=== PATIENT | female | born 2000 | race Caucasian/White ===

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

== ENCOUNTER 2023-04-29 07:38 | Emergency (ER) | payer OTHER ==
--- OUTSIDE RECORDS SUMMARY | 2023-04-29 07:43 | XMS REPORT | Continuity of Care Document ---
:2000 Author Organization [facility] t Address [address] [place] [id number] Care Team Providers Name Role Phone [email or web address] Attending Clinician Unavailable Antonietta Reardon Attending Clinician [email or web address] Admitting Clinician Unavailable Payers Payer Name Policy Type Policy Number Effective Date Expiration Date S [place] [id number] 2022 00:00:00 [place] ([place] Problems This patient has no known problems. Allergies, Adverse Reactions, Alerts This patient has no known allergies or adverse reactions. Social History Smoking Status Start Date Stop Date Source Social [facility] Medications Ordered Filled Start Stop Current Ordering Indication Dosage Frequency Signature Comments Components Source Medication Medication Date Date Medication? Clinician (SIG) Name Name acetaminoph Yes 1 tab =, Me moria en-codeine 7-30 PO, Q4H, l #3 13:19: PRN Pain, [place] 00 # 30 tab, 0 Refill(s) Sulfamethox Yes 1 tab, PO, Memoria azole 800 7-30 Q12H, # 10 l MG / 13:19: tab, 0 [place] Trimethopri 00 Refill(s) m 160 MG Oral Tablet [Bactrim] Vital Signs Vital Name Observation Time Observation Value Comments Source BMI Calculated 2019-04-13 13:13:00 Troy al [facility] Temperature Oral (F) 2019-04-13 13:13:00 97.6 F [facility] Respitory Rate 2019-04-13 13:13:00 Memori al [place] Systolic (mm Hg) 2019-04-13 13:13:00 Shankar rial [place] Diastolic (mm Hg) 2019-04-13 13:13:00 Mem orial [place] Heart Rate 2019-04-13 13:13:00 [facility] Weight 2019-04-13 13:13:00 [facility] [place] Height 2019-04-13 13:13:00 162.56 cm [facility] [place] Procedures This patient has no known procedures. Encounters Start End Encounter Admission Attending Care Care Encounter Source Date/Time Date/Time Type Type Clinicians Facility Department ID 2023-03-08 2023-03-08 Outpatient [email or web address] PRIV PRIV [id number] [facility] 00:00:00 00:00:00 sunny [id number] [facility] 2019-04-16 2019-04-17 Between nullFlavo [facility] [id number] Memoria 18:54:38 18:54:38 Visit r Primary 01 l Care [facility] [facility] 2019-04-16 2019-04-17 Outpatient [facility] [id number] 13:54:38 13:54:38 2019-04-13 2019-04-14 [id number] Memoria 13:00:00 04:59:59 r Primary 00 l Care [place] [facility] 2019-04-13 2019-04-13 Outpatient Alexys, [facility] [id number] 08:00:00 23:59:59 Antonietta 00 2019-04-13 2019[id number] Memoria 08:00:00 08:00:00 00 l [place] Results This patient has no known results.
[2023-04-29 08:42] LABS: SARS-CoV-2 Antigen Rapid Res Negative (Negative)
--- NOTE | 2023-04-29 09:13 | ER ---
Nurse's Notes [facility] Name: Mely Haq Age: 23 yrs Sex: Female : 2000 Arrival Date: 04/29/2023 Time: 07:38 Bed 6 Private MD: Diagnosis: Acute upper respiratory infection, unspecified;Acute serous otitis media, left ear Presentation: 04/29 07:56 Chief complaint: Patient states: she woke up this morning with throat pain. she ap3 attempted to go to work this morning, but was unable to stay due to feeling unwell. Coronavirus screen: chills, fever, sore throat. Ebola Screen: No symptoms or risks identified at this time. Initial Sepsis Screen: Does the patient meet any 2 criteria? No. Patient's initial sepsis screen is negative. Does the patient have a suspected source of infection? No. Patient's initial sepsis screen is negative. Risk Assessment: Do you want to hurt yourself or someone else? Patient reports no desire to harm self or others. Onset of symptoms was April 29, 2023. 07:56 Method Of Arrival: Ambulatory ap3 07:56 Acuity: PATY 4 ap3 Triage Assessment: 08:00 General: Appears ill, Behavior is crying. General: Reports chills for fever for. Pain: ap3 Complains of pain in throat. EENT: Reports pain when swallowing. Neuro: Reports. Cardiovascular: Patient's skin is warm and dry. Respiratory: Airway is patent Respiratory effort is even, unlabored, Respiratory pattern is regular, symmetrical. 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 - Social history:: Smoking status: Patient denies any tobacco usage or history of. Patient uses alcohol, every other day, and heavy on the weekends. Screenin:03 [facility] ED Fall Risk Assessment (Adult) Score/Fall Risk Level 0 - 2 = Low Risk. Abuse me1 screen: Denies threats or abuse. Nutritional screening: No deficits noted. Tuberculosis screening: No symptoms or risk factors identified. Assessment: 08:03 General: Appears uncomfortable, well groomed, well developed, well nourished, Behavior me1 is cooperative, appropriate for age, crying, Reports chills for feeling ill for sore throat and body aches that started this morning. Pain: Complains of pain in generalized Pain does not radiate. Pain currently is 7 out of 10 on a pain scale. Quality of pain is described as aching, Pain began 2 hours ago. Is continuous. Neuro: Level of Consciousness is awake, alert, obeys commands, Oriented to person, place, time, situation, Appropriate for age. Cardiovascular: Capillary refill < 3 seconds Patient's skin is warm and dry. Respiratory: Airway is patent Respiratory effort is even, unlabored, Respiratory pattern is regular, symmetrical. GI: Patient currently denies diarrhea, nausea, vomiting. :. Vital Signs: 07:56 Pulse 86; Resp 18; Temp 99.8; Pulse Ox 100% ; ap3 09:18 BP 119 / 84; Pulse 85; Resp 16; Temp 98.3(O); Pulse Ox 100% on R/A; me1 ED Course: 07:41 Patient arrived in ED. ts1 07:49 Let[facility] Baldwin F[facility]-C [facility]. snw 07:49 Chas Dunham MD is Attending Physician. snw 07:51 Karie Salgado, ISABELLE is Primary Nurse. ko1 07:58 Triage completed. ap3 08:01 SARS RAPID Sent. ko1 08:01 Flu Sent. ko1 08:01 Strep Sent. ko1 08:01 Patient maintains SpO2 saturation greater than 95% on room air. ap3 08:01 Arm band placed on right wrist. ap3 08:03 No provider procedures requiring assistance completed. me1 08:03 Allergy band placed. Bed in low position. Call light in reach. Side rails up X 1. me1 Provided Education on: POC. Verbalized understanding.. Client placed on continuous cardiac and pulse oximetry monitoring. NIBP monitoring applied. 09:19 PREGU Sent. me1 09:19 Urine W/Microscopic (UAM) Sent. me1 09:19 Throat Culture Sent. me1 Administered Medications: 09:24 Drug: AZITHromycin PO 500 mg Route: PO; me1 09:30 Follow up: Response: No adverse reaction me1 09:24 Drug: Famotidine PO 20 mg Route: PO; me1 09:30 Follow up: Response: No adverse reaction me1 09:24 Drug: ZyrTEC - Cetirizine PO 10 mg Route: PO; me1 09:30 Follow up: Response: No adverse reaction me1 Medication: 08:03 VIS not applicable for this client. me1 Outcome: 09:12 Discharge ordered by . snw 09:34 Discharged to home ambulatory, with friend. me1 09:34 Condition: stable 09:34 Discharge instructions given to patient, family, Instructed on discharge instructions, follow up and referral plans. medication usage, Demonstrated understanding of instructions, follow-up care, medications, Prescriptions given X 3. 09:35 Patient left the ED. me1 Signatures: Lety Baldwin, PAN CLEANER-C PAN CLEANER-Csnw Jessica Rodriguez RN RN ap3 Karie Salgado RN RN ko1 Kathleen Gaitan, PAS PAS ts1 Becki Harris RN RN me1 Corrections: (The following items were deleted from the chart) 08:00 07:58 Home Meds: Tramadol Oral; ap3 ap3
--- NOTE | 2023-04-29 09:13 | EDPHYS ---
Physician Documentation [facility] Name: Mely Haq Age: 23 yrs Sex: Female : 2000 Arrival Date: 04/29/2023 Time: 07:38 Bed 6 Private MD: ED Physician Chas Dunham HPI: 04/29 07:59 This 23 yrs old Female presents to ER via Ambulatory with complaints of General snw Weakness, Chest Pain, Fever, Throat pain. 07:59 The patient or guardian reports flu symptoms. Onset: The symptoms/episode snw began/occurred suddenly, this morning. Severity of symptoms: At their worst the symptoms were mild moderate. It is unknown whether or not the patient has recently seen a physician. 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 - Social history:: Smoking status: Patient denies any tobacco usage or history of. Patient uses alcohol, every other day, and heavy on the weekends. ROS: 07:58 Eyes: Negative for injury, pain, redness, and discharge, ENT: Negative for injury, snw pain, and discharge, Neck: Negative for injury, pain, and swelling. 07:58 Respiratory: Negative for shortness of breath, cough, wheezing, and pleuritic chest pain, Abdomen/GI: Negative for abdominal pain, nausea, vomiting, diarrhea, and constipation, Back: Negative for injury and pain, : Negative for injury, bleeding, discharge, and swelling, MS/Extremity: Negative for injury and deformity, Skin: Negative for injury, rash, and discoloration, Psych: Negative for depression, anxiety, suicide ideation, homicidal ideation, and hallucinations. 07:58 Constitutional: Positive for body aches, chills, fever, malaise. 07:58 Cardiovascular: Positive for chest pain. 07:58 Neuro: Positive for lightheaded. Exam: 07:55 Head/Face: Normocephalic, atraumatic. Eyes: Pupils equal round and reactive to light, snw extra-ocular motions intact. Lids and lashes normal. Conjunctiva and sclera are non-icteric and not injected. Cornea within normal limits. Periorbital areas with no swelling, redness, or edema. 07:55 Neck: Trachea midline, no thyromegaly or masses palpated, and no cervical lymphadenopathy. Supple, full range of motion without nuchal rigidity, or vertebral point tenderness. No Meningismus. Chest/axilla: Normal chest wall appearance and motion. Nontender with no deformity. No lesions are appreciated. Cardiovascular: Regular rate and rhythm with a normal S1 and S2. No gallops, murmurs, or rubs. Normal PMI, no JVD. No pulse deficits. Respiratory: Lungs have equal breath sounds bilaterally, clear to auscultation and percussion. No rales, rhonchi or wheezes noted. No increased work of breathing, no retractions or nasal flaring. Abdomen/GI: Soft, non-tender, with normal bowel sounds. No distension or tympany. No guarding or rebound. No evidence of tenderness throughout. Back: No spinal tenderness. No costovertebral tenderness. Full range of motion. Skin: Warm, dry with normal turgor. Normal color with no rashes, no lesions, and no evidence of cellulitis. MS/ Extremity: Pulses equal, no cyanosis. Neurovascular intact. Full, normal range of motion. Neuro: Awake and alert, GCS 15, oriented to person, place, time, and situation. Cranial nerves II-XII grossly intact. Motor strength 5/5 in all extremities. Sensory grossly intact. Cerebellar exam normal. Normal gait. 07:55 Constitutional: The patient appears awake, anxious, obese, uncomfortable. 07:55 ENT: Ear canal(s): are normal, TM's: erythema, that is moderate, on the right, Nose: is normal, Mouth: is normal. 07:55 Psych: Behavior/mood is anxious, Affect is tearful. Oriented to person, place, time. Vital Signs: 07:56 Pulse 86; Resp 18; Temp 99.8; Pulse Ox 100% ; ap3 09:18 BP 119 / 84; Pulse 85; Resp 16; Temp 98.3(O); Pulse Ox 100% on R/A; me1 MDM: 07:51 Patient medically screened. snw 07:59 Differential diagnosis: bronchitis, flu, URI. Data reviewed: vital signs, nurses notes. snw 04/29 07:50 Order name: Strep snw 04/29 07:50 Order name: Flu; Complete Time: 09:02 snw 04/29 07:50 Order name: SARS RAPID; Complete Time: 08:49 snw 04/29 08:50 Order name: Throat Culture EDMS 04/29 08:53 Order name: Urine W/Microscopic (UAM); Complete Time: 09:46 snw 04/29 08:53 Order name: PREGU; Complete Time: 09:46 snw 04/29 08:54 Order name: Orthostatics snw Administered Medications: 09:24 Drug: AZITHromycin PO 500 mg Route: PO; me1 09:30 Follow up: Response: No adverse reaction me1 09:24 Drug: Famotidine PO 20 mg Route: PO; me1 09:30 Follow up: Response: No adverse reaction me1 09:24 Drug: ZyrTEC - Cetirizine PO 10 mg Route: PO; me1 09:30 Follow up: Response: No adverse reaction me1 Disposition: 12:19 Co-signature as Attending Physician, Chas Dunham MD I reviewed the patient's care rn provided by the Advanced Practice Provider and agree with the diagnosis and treatment plan. Disposition Summary: 04/29/23 09:12 Discharge Ordered Location: Home snw Condition: Stable snw Diagnosis - Acute upper respiratory infection, unspecified snw - Acute serous otitis media, left ear snw Followup: snw - With: Emergency Department - When: As needed - Reason: Worsening of condition Followup: snw - With: Private Physician - When: 2 - 3 days - Reason: Recheck today's complaints, Continuance of care, Re-evaluation by your physician Discharge Instructions: - Discharge Summary Sheet snw - Otitis Media, Adult snw - Upper Respiratory Infection, Adult snw - Rehydration, Adult snw Forms: - Work release form snw - Medication Reconciliation Form snw - Thank You Letter snw - Antibiotic Education snw - Prescription Opioid Use snw - Patient Portal Instructions snw - Leadership Thank You Letter snw Prescriptions: - Zyrtec 10 mg Oral Tablet - take 1 tablet by ORAL route once daily As needed; 20 tablet; Refills: 0, snw Product Selection Permitted - Pepcid 20 mg Oral Tablet - take 1 tablet by ORAL route once daily; 20 tablet; Refills: 0, Product snw Selection Permitted - Zithromax 500 mg Oral Tablet - take 1 tablet by ORAL route once daily for 5 days; 5 tablet; Refills: 0, snw Product Selection Permitted Signatures: Dispatcher [employer] EDLety Freeman, PRODUCT APPLICATIONS SCIENTIST-C PRODUCT APPLICATIONS SCIENTIST-Csnw Chas Dunham MD MD rn Prokisch, Amanda, RN RN ap3 Becki Harris RN RN me1 Corrections: (The following items were deleted from the chart) 08:00 07:58 Home Meds: Tramadol Oral; ap3 ap3
[2023-04-29 09:25] LABS: Specific Gravity 1.009 (1.005-1.030)
[2023-04-29 09:26] LABS: Specific Gravity 1.009 (1.005-1.030); Urine Bacteria <20 /HPF (<20); Urine Bilirubin NEGATIVE (Negative); Urine Blood Negative (Negative); Urine Clarity Turbid (Clear); Urine Color Colorless (Yellow); Urine Glucose NEGATIVE (Negative); Urine Protein NEGATIVE (Negative); Urine RBC <5 /HPF (None Seen); Urine Urobilinogen Normal (Normal)
[2023-04-29] MEDS ORDERED: FAMOTIDINE 20 MG TAB ONE (09:31)
[2023-04-29] MEDS ORDERED: AZITHROMYCIN 250 MG TAB ONE (09:31)
[2023-04-29] MEDS ORDERED: CETIRIZINE HCL 5 MG TABLET ONE (09:33)
[2023-04-29 09:51] VITALS: O2SAT 100
[2023-04-29 09:56] VITALS: BP 119/84; TEMP 98.3
== END 2023-04-29 09:35 | disposition home or self-care (01) ==
LOC: ER 07:38
DX: H65.02 Acute serous otitis media, left ear (principal); J06.9 Acute upper respiratory infection, unspecified; Z20.822 Contact with and (suspected) exposure to COVID-19
CPT/HCPCS: 36415; 81001; 81025; 87070; 87081; 87804; 87811; 99284

== ENCOUNTER 2023-08-05 06:19 | Emergency (ER) | payer BC, OTHER ==
--- OUTSIDE RECORDS SUMMARY | 2023-08-05 06:24 | XMS REPORT | Continuity of Care Document ---
:[address] [facility] t Address [address] [place] [id number] Care Team Providers Name Role Phone [email or web address] Attending Clinician Unavailable Antonietta Reardon Attending Clinician [email or web address] Admitting Clinician Unavailable Payers Payer Name Policy Type Policy Number Effective Date Expiration Date S [place] [id number] 2022 00:00:00 [place] Problems This patient has no known problems. Allergies, Adverse Reactions, Alerts This patient has no known allergies or adverse reactions. Social History Smoking Status Start Date Stop Date Source Social History [facility] Medications Ordered Filled Start Stop Current Ordering Indication Dosage Frequency Signature Comments Components Source Medication Medication Date Date Medication? Clinician (SIG) Name Name acetaminoph Yes 1 tab =, Me moria en-codeine 7-30 PO, Q4H, l #3 13:19: PRN Pain, Ambrosio 00 # 30 tab, 0 Refill(s) Sulfamethox Yes 1 tab, PO, [facility] azole 800 7-30 Q12H, # 10 l MG / 13:19: tab, 0 [place] Trimethopri 00 Refill(s) m 160 MG Oral Tablet [Bactrim] Vital Signs Vital Name Observation Time Observation Value Comments Source BMI Calculated 2019-04-13 13:13:00 [place] al Ambrosio Temperature Oral (F) 2019-04-13 13:13:00 97.6 F [facility] Respitory Rate 2019-04-13 13:13:00 [facility] [place] Systolic (mm Hg) 2019-04-13 13:13:00 Shankar rial Ambrosio Diastolic (mm Hg) 2019-04-13 13:13:00 Mem [facility] [place] Heart Rate 2019-04-13 13:13:00 [facility] Weight 2019-04-13 13:13:00 [facility] Height 2019-04-13 13:13:00 162.56 cm [facility] Procedures This patient has no known procedures. Encounters Start End Encounter Admission Attending Care Care Encounter Source Date/Time Date/Time Type Type Clinicians Facility Department ID 2023-07-29 2023-07-29 Outpatient GC_GCFRWD_S PRIV PRIV [id number] [facility] 00:00:00 00:00:00 zacher [id number] [facility] 2023-03-08 2023-03-08 Outpatient GC_GCFRWD_S PRIV PRIV [id number] [facility] 00:00:00 00:00:00 zacher [id number] [facility] 2019-04-16 2019-04-17 Between Robelo [facility] [id number] [facility] 18:54:38 18:54:38 Visit r Primary 01 l Care [facility] 2019-04-16 2019-04-17 Outpatient [facility] [id number] 13:54:38 13:54:38 2019-04-13 2019-04-14 Outpatient nullFlavo [facility] [id number] [facility] 13:00:00 04:59:59 r Primary 00 l Care [facility] 2019-04-13 2019-04-13 Outpatient Alexys [facility] [id number] 08:00:00 23:59:59 Antonietta 00 2019-04-13 2019-04-13 Outpatient CECILIA [facility] [id number] [facility] 08:00:00 08:00:00 00 l Ambrosio Results This patient has no known results.
--- NOTE | 2023-08-05 07:07 | EDPHYS ---
Physician Documentation [facility] Name: Mely Haq Age: 23 yrs Sex: Female : 2000 Arrival Date: 08/05/2023 Time: 06:19 Bed 7 Private MD: ED Physician Jeovanny Escoto HPI: 08/05 06:46 This 23 yrs old Female presents to ER via Ambulatory with complaints of Sore sp4 Throat, Cough, Difficulty Swallowing. 07:03 Very pleasant 23-year-old female presents with acute onset of bilateral sore throat sp4 starting yesterday evening associated with hoarseness, reported also bilateral earache. 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 - Social history:: Smoking status: Patient denies any tobacco usage or history of. - Family history:: not pertinent. ROS: 07:03 Constitutional: Negative for fever, chills, and weight loss, ENT: Positive sore throat sp4 07:03 All other systems are negative, Exam: 07:03 Constitutional: This is a well developed, well nourished patient who is awake, alert, sp4 and in no acute distress. Head/Face: Normocephalic, atraumatic. Eyes: Pupils equal round and reactive to light, extra-ocular motions intact. Lids and lashes normal. Conjunctiva and sclera are not injected. Cornea within normal limits. Periorbital areas with no swelling, redness, or edema. ENT: Nares patent. No nasal discharge, no septal abnormalities noted. Tympanic membranes are normal and external auditory canals are clear. Oropharynx -bilateral pharyngeal erythema and irritation and streaky exudates suggestive of acute bilateral tonsillitis. Neck: Trachea midline, no thyromegaly or masses palpated, and no cervical lymphadenopathy. Supple, full range of motion without nuchal rigidity, or vertebral point tenderness. Chest/axilla: Normal chest wall appearance and motion. Nontender with no deformity. No lesions are appreciated. Cardiovascular: Regular rate and rhythm with a normal S1 and S2. No gallops, murmurs, or rubs. Normal PMI, no JVD. No pulse deficits. Respiratory: Lungs have equal breath sounds bilaterally, clear to auscultation and percussion. No rales, rhonchi or wheezes noted. No increased work of breathing, no retractions or nasal flaring. Abdomen/GI: Soft, non-tender, with normal bowel sounds. No distension or tympany. No guarding or rebound. No evidence of tenderness throughout. Back: No spinal tenderness. No costovertebral tenderness. Skin: Warm, dry with normal turgor. Normal color with no rashes, no lesions, and no evidence of cellulitis. MS/ Extremity: Pulses equal, no cyanosis. Neurovascular intact. Full, normal range of motion. Neuro: Awake and alert, GCS 15, oriented to person, place, time, and situation. Cranial nerves II-XII grossly intact. Motor strength 5/5 in all extremities. Sensory grossly intact. Psych: Awake, alert, with orientation to person, place and time. Behavior, mood, and affect are within normal limits Vital Signs: 06:43 BP 152 / 106; Pulse 85; Resp 18 S; Temp 97.3(TE); Pulse Ox 99% on R/A; Weight 74.84 kg as6 (R); Height 5 ft. 4 in. (R); Pain 7/10; 07:33 BP 140 / 88; Pulse 78; Resp 15; Pulse Ox 100% ; nw1 06:43 Body Mass Index 28.32 (74.84 kg, 162.56 cm) as6 06:43 Pain Scale: Adult as6 MDM: 06:47 Patient medically screened. sp4 07:03 Differential diagnosis: bronchitis, epiglottitis, influenza, mononucleosis. Data sp4 reviewed: vital signs, nurses notes. ED course: Patient has Nexplanon in the left arm, test not indicated, patient will be prescribed cephalexin and ondansetron also someone ibuprofen. Administered Medications: 07:19 Drug: Tylenol-Codeine #3 PO (120 mg - 12 mg) 10 ml PO once; RASS on ADMIN: Combtv4, nw1 Very Agttd3, Agttd2, Rstlss1, AlertClm0, Drwsy-1, Lt Sdtn-2, Mod Sdtn-3, Dp Sdtn-4, UnArsble-5 Route: PO; 07:40 Follow up: Response: No adverse reaction nw1 07:19 Drug: Ondansetron PO 4 mg PO once Route: PO; nw1 07:40 Follow up: Response: No adverse reaction nw1 07:23 Drug: Ketorolac IM 60 mg IM once Route: IM; Site: left gluteus; nw1 07:41 Follow up: Response: No adverse reaction nw1 07:23 Drug: Rocephin (cefTRIAXone) IM 1 grams IM once Route: IM; Site: right gluteus; nw1 07:40 Follow up: Response: No adverse reaction nw1 Disposition Summary: 08/05/23 07:07 Discharge Ordered Notes: Location: Home sp4 Problem: new sp4 Symptoms: have improved sp4 Condition: Stable sp4 Diagnosis - Acute laryngopharyngitis sp4 - Acute tonsillitis, unspecified sp4 Followup: sp4 - With: Private Physician - When: 7 - 10 days - Reason: Recheck today's complaints Discharge Instructions: - Discharge Summary Sheet sp4 - Pharyngitis sp4 Forms: - Patient Portal Instructions sp4 - Work release form nw1 Prescriptions: - Cephalexin 500 mg Oral Capsule - take 1 capsule ORAL route every 8 hours for 10 days; 30 capsule; Refills: 0, sp4 Product Selection Permitted - Ibuprofen 800 mg Oral Tablet - take 1 tablet ORAL route every 8 hours As needed take with food; 30 tablet; sp4 Refills: 0, Product Selection Permitted - ondansetron 8 mg Oral Tablet,disintegrating - take 1 tablet ORAL route every 8 hours PRN nausea; 30 tablet; Refills: 0, sp4 Product Selection Permitted Signatures: Dispatcher [employer] Tobias Bergman, RN RN as6 Jeovanny Escoto MD MD sp4 Maribel Bergman RN RN nw1
--- NOTE | 2023-08-05 07:07 | ER ---
Nurse's Notes [facility] Name: Mely Haq Age: 23 yrs Sex: Female : 2000 Arrival Date: 08/05/2023 Time: 06:19 Bed 7 Private MD: Diagnosis: Acute laryngopharyngitis;Acute tonsillitis, unspecified Presentation: 08/05 06:44 Chief complaint: Patient states: sore throat with painful swallowing since yesterday. as6 Coronavirus screen: At this time, the client does not indicate any symptoms associated with coronavirus-19. Ebola Screen: No symptoms or risks identified at this time. Initial Sepsis Screen: Does the patient meet any 2 criteria? No. Patient's initial sepsis screen is negative. Does the patient have a suspected source of infection? No. Patient's initial sepsis screen is negative. Risk Assessment: Do you want to hurt yourself or someone else? Patient reports no desire to harm self or others. Onset of symptoms was August 04, 2023. 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 - Social history:: Smoking status: Patient denies any tobacco usage or history of. - Family history:: not pertinent. Screenin:26 [facility] ED Fall Risk Assessment (Adult) History of falling in the last 3 months, nw1 including since admission No falls in past 3 months (0 pts) Confusion or Disorientation No (0 pts) Intoxicated or Sedated No (0 pts) Impaired Gait No (0 pts) Mobility Assist Device Used No (0 pt) Altered Elimination Yes (1 pt) Score/Fall Risk Level 0 - 2 = Low Risk Oriented to surroundings, Maintained a safe environment, Educated pt \T\ family on fall prevention, incl call for assistance when getting out of bed, Assessed \T\ reinforced patient's understanding of fall precautions, Provided non-skid footwear, Hourly rounding (assess needs \T\ fall precautionary measures) done, Used ambulatory aids as needed (educated on \T\ assisted with), Used gait belt as appropriate. Abuse screen: Denies threats or abuse. Denies injuries from another. Nutritional screening: No deficits noted. Tuberculosis screening: No symptoms or risk factors identified. Assessment: 07:26 General: Appears in no apparent distress. uncomfortable, Behavior is calm, cooperative, nw1 appropriate for age. Pain: Complains of pain in throat. Neuro: No deficits noted. Cardiovascular: No deficits noted. Respiratory: Airway is patent Respiratory effort is even, unlabored, Breath sounds are clear bilaterally. GI: No deficits noted. : No deficits noted. EENT: Throat is reddened. Derm: No deficits noted. Musculoskeletal: No deficits noted. Vital Signs: 06:43 BP 152 / 106; Pulse 85; Resp 18 S; Temp 97.3(TE); Pulse Ox 99% on R/A; Weight 74.84 kg as6 (R); Height 5 ft. 4 in. (R); Pain 7/10; 07:33 BP 140 / 88; Pulse 78; Resp 15; Pulse Ox 100% ; nw1 06:43 Body Mass Index 28.32 (74.84 kg, 162.56 cm) as6 06:43 Pain Scale: Adult as6 ED Course: 06:24 Patient arrived in ED. gm2 06:43 Arm band placed on. as6 06:45 Triage completed. as6 06:46 Jeovanny Escoto MD is Attending Physician. sp4 07:07 Maribel Bergman, RN is Primary Nurse. nw1 07:26 Patient has correct armband on for positive identification. Bed in low position. Call nw1 light in reach. Side rails up X 1. Provided Education on: NA. Pulse ox on. NIBP on. Door closed. Noise minimized. 07:26 No provider procedures requiring assistance completed. Patient did not have IV access nw1 during this emergency room visit. Administered Medications: 07:19 Drug: Tylenol-Codeine #3 PO (120 mg - 12 mg) 10 ml PO once; RASS on ADMIN: Combtv4, nw1 Very Agttd3, Agttd2, Rstlss1, AlertClm0, Drwsy-1, Lt Sdtn-2, Mod Sdtn-3, Dp Sdtn-4, UnArsble-5 Route: PO; 07:40 Follow up: Response: No adverse reaction nw1 07:19 Drug: Ondansetron PO 4 mg PO once Route: PO; nw1 07:40 Follow up: Response: No adverse reaction nw1 07:23 Drug: Ketorolac IM 60 mg IM once Route: IM; Site: left gluteus; nw1 07:41 Follow up: Response: No adverse reaction nw1 07:23 Drug: Rocephin (cefTRIAXone) IM 1 grams IM once Route: IM; Site: right gluteus; nw1 07:40 Follow up: Response: No adverse reaction nw1 Medication: 07:26 VIS not applicable for this client. nw1 Outcome: :07 Discharge ordered by . jeff 07:41 Discharged to home ambulatory, with family, nw1 07:41 Condition: stable 07:41 Discharge instructions given to patient, family, Instructed on discharge instructions, follow up and referral plans. medication usage, Demonstrated understanding of instructions, follow-up care, medications, Prescriptions given X 3, 07:42 Patient left the ED. nw1 Signatures: Tobias Saenz, RN RN as6 Jeovanny Escoto MD MD sp4 Rosy Santos gm2 Maribel Bergman RN RN nw1
[2023-08-05] MEDS ORDERED: CODEINE 12mg/APAP 120mg PER 5 ML UCUP ONE (07:25)
[2023-08-05] MEDS ORDERED: KETOROLAC 30 MG/ML INJ ONE (07:25)
[2023-08-05] MEDS ORDERED: CEFTRIAXONE 1000 MG/VIAL ONE (07:25)
[2023-08-05] MEDS ORDERED: ONDANSETRON 4 MG (ODT) TAB ONE (07:25)
[2023-08-05] MEDS ORDERED: LIDOCAINE 1% MPF 5 ML VIAL ONE (07:27)
[2023-08-05 07:52] VITALS: TEMP 97.3
[2023-08-05 07:56] VITALS: BP 140/88; O2SAT 100
== END 2023-08-05 07:42 | disposition home or self-care (01) ==
LOC: ER 06:19
DX: J06.0 Acute laryngopharyngitis (principal); J03.90 Acute tonsillitis, unspecified
CPT/HCPCS: 96372; 99284; Q0162; J2001; J0696

== ENCOUNTER 2025-06-14 15:40 | Emergency (ER) | payer BC, OTHER ==
--- OUTSIDE RECORDS SUMMARY | 2025-06-14 15:43 | XMS REPORT | Continuity of Care Document ---
Author Name Unknown Address [address] [place] [address] Organization [facility] [place] Address [address] [place] [address] Care Team Providers Care Stevedore Dock Name Role Phone Aleah Freed APRN Primary Care Physician [phone] YANELI MCGRATH Attending Clinician Unavailable Payers Payer Name Policy Type Policy Number Effective Date Expirati on Date Source [place] [id number] 2022 00:00:00 Social History Social Habit Start Date Stop Date Quantity Comments Source ASSERTION Not [facility] Sexual orientation [facility] History of Social function 2025-03-09 00:00:00 2025-03-09 00:00:00 [facility] Tobacco use and exposure 2025-03-09 00:00:00 2025-03-09 00:00:00 Smokeless tobacco non-user [facility] Alcoholic beverage intake 2025-03-09 00:00:00 2025-03-09 00:00:00 Current drinker of alcohol (finding) [facility] Sex 2024-12-17 13:04:21 2024-12-17 13:04:21 Female (finding) [facility] Sex assigned at 2000 00:00:00 2000 00:00:00 [facility] Smoking Status Start Date Stop Date Source Never smoked tobacco [facility] Medications Ordered Medication Name Filled Medication Name Start Date Stop Date Current Medication? Ordering Clinician Indication Dosage Frequency Signature (SIG) Comments Components Source etonogestre l-eluting contracepti ve device (Nexplanon) 68 MG implant 03-09 08:37: 48 Yes Inject 1 implant by subcutaneo us route. [facility] Tirzepatide (Mounjaro) 2.5 MG/0.5ML solution auto-inject or 03-09 08:37: 43 Yes Inject under the skin. [facility] acetaminoph en-codeine #3 04-13 13:19: 00 Yes 1 tab =, PO, Q4H, PRN Pain, # 30 tab, 0 Refill(s) Jenaro Valente Sulfamethox azole 800 MG / Trimethopri m 160 MG Oral Tablet [Bactrim] 04-13 13:19: 00 Yes 1 tab, PO, Q12H, # 10 tab, 0 Refill(s) Jenaro Valente Vital Signs Vital Name Observation Time Observation Value Comments S ource Systolic blood pressure 2025-03-09 13:33:00 121 mm[Hg] [facility] Diastolic blood pressure 2025-03-09 13:33:00 82 mm[Hg] [facility] Heart rate 2025-03-09 13:33:00 72 /min [facility] Body temperature 2025-03-09 13:33:00 37.17 Tenisha [facility] Body height 2025-03-09 13:33:00 160 [facility] Body weight 2025-03-09 13:33:00 58.514 kg [facility] BMI 2025-03-09 13:33:00 22.85 kg/m2 [facility] Oxygen saturation in Arterial blood by Pulse oximetry 2025-03-09 13:33:00 99 /min [facility] Weight 2019-04-13 13:13:00 [facility] Height 2019-04-13 13:13:00 162.56 cm [facility] [place] BMI Calculated 2019-04-13 13:13:00 [facility] [place] Temperature Oral (F) 2019-04-13 13:13:00 97.6 F [facility] Respitory Rate 2019-04-13 13:13:00 [facility] [place] Systolic (mm Hg) 2019-04-13 13:13:00 [facility] Diastolic (mm Hg) 2019-04-13 13:13:00 [facility] Heart Rate 2019-04-13 13:13:00 Melina Valente Encounters Start Date/Time End Date/Time Encounter Type Admission Type Attending [facility] Facility Care Department Encounter ID Source 2025-07-01 10:00:00 2025-07-01 10:00:00 Outpatient [facility]GRATH[facility]ANELI [facility] ER [id number] [facility] 2025-03-10 00:00:00 2025-05-10 22:46:49 Results Follow-Up Yaneli Mcgrath [facility] [id number] [facility] 2025-03-09 08:30:00 2025-03-09 09:14:01 Office Visit Yaneli Mcgrath [facility] 1 [id number] [facility] 2019-04-16 18:54:38 2019-04-17 18:54:38 Between Visit [facility] [id number] Jenaro Valente 2019-04-13 13:00:00 2019-04-14 04:59:59 Outpatient [facility] [id number] Jenaro Valente
[2025-06-14 16:18] LABS: Influenza A Ag Negative; Influenza B Ag Negative; SARS-CoV-2 Antigen Rapid Res Negative (Negative)
--- NOTE | 2025-06-14 16:41 | EDPHYS ---
Physician Documentation [facility] Name: Mely Haq Age: 25 yrs Sex: Female : 2000 Arrival Date: 06/14/2025 Time: 15:40 Bed 10 Private MD: ED Physician Antoine Hamm HPI: 06/14 15:49 This 25 yrs old Female presents to ER via Unassigned with complaints of Sore Throat. kb 15:49 Pt is a 25 year old female who presents for sore throat that started yesterday. Denies kb fever, cough, congestion. . Historical: - Allergies: 16:01 No Known Allergies; af3 - PMHx: 16:01 laryngitis; af3 - Immunization history:: Adult Immunizations unknown. - Infectious Disease History:: Denies. - Social history:: Smoking status: Patient denies any tobacco usage or history of. Patient uses alcohol, occasionally. ROS: 15:49 Constitutional: As per HPI kb Exam: 15:49 Constitutional: This is a well developed, well nourished patient who is awake, alert, kb and in no acute distress. Head/Face: Normocephalic, atraumatic. Cardiovascular: Regular rate Respiratory: Respirations even and unlabored. No increased work of breathing. Talking in full sentences Skin: Warm, dry with normal turgor. Normal color. MS/ Extremity: Pulses equal, no cyanosis. Neurovascular intact. Full, normal range of motion. Neuro: Awake and alert, GCS 15, oriented to person, place, time, and situation. 15:49 ENT: Posterior pharynx: Airway: normal, Tonsils: are normal in appearance, erythema, that is mild, Vital Signs: 15:57 BP 134 / 95; Pulse 80; Resp 18; Temp 97.9; Pulse Ox 99% on R/A; Weight 59.87 kg; Height af3 5 ft. 3 in. ; 17:11 BP 133 / 99; Pulse 87; Resp 18; Pulse Ox 100% on R/A; af3 15:57 Body Mass Index 23.38 (59.87 kg, 160.02 cm) af3 MDM: 15:43 Medical Screening Exam initiated kb 15:49 Differential diagnosis: influenza, pharyngitis, covid, strep. Data reviewed: vital kb signs, nurses notes. 16:40 I considered the following discharge prescriptions or medication management in the emergency department I discussed and recommended Over The Counter medications, Antibiotics: At this time antibiotics are not recommended. Counseling: I had a detailed discussion with the patient and/or guardian regarding the historical points, exam findings, and any diagnostic results supporting the discharge/admit diagnosis, lab results, the need for outpatient follow up, a family practitioner, to return to the emergency department if symptoms worsen or persist or if there are any questions or concerns that arise at home. 06/14 15:46 Order name: Group A Streptococcus Rapid; Complete Time: 16:17 kb 06/14 15:46 Order name: COVID-19 Ag + Flu A+B Ag; Complete Time: 16:36 kb 06/14 16:13 Order name: Throat Culture EDMS Administered Medications: 17:09 Drug: GI Cocktail without - (Maalox PO 30 ml, Lidocaine Mucous Membrane 2 % 15 af3 ml) PO once Route: PO; 17:10 Follow up: Response: No adverse reaction; Medication administered at discharge. af3 Disposition: 16:46 I was immediately available on-site in the Emergency Department for consultation in the ms3 care of the patient. Disposition Summary: 06/14/25 16:41 Discharge Ordered Notes: Location: Home Condition: Stable Diagnosis - Acute pharyngitis, unspecified kb Followup: kb - With: Emergency Department - When: As needed - Reason: Worsening of condition Followup: kb - With: Private Physician - When: 2 - 3 days - Reason: Recheck today's complaints, Continuance of care, Re-evaluation by your physician Discharge Instructions: - Discharge Summary Sheet kb - Sore Throat kb - Pharyngitis, [id number] kb Forms: - Medication Reconciliation Form kb - Antibiotic Education kb - Prescription Opioid Use kb - Patient Portal Instructions kb - Leadership Thank You Letter kb Signatures: Dispatcher [employer] EDMS Kellee Kaiser FNP-C FNP-Antoine French DO DO ms3 Ariella Durham RN RN af3 Corrections: (The following items were deleted from the chart) 15:46 15:46 Group A Streptococcus Rapid Sc+I.LAB.BRZ ordered. EDMS EDMS 15:46 15:46 COVID-19 Ag + Flu A+B Ag+I.LAB.BRZ ordered. EDMS EDMS
--- NOTE | 2025-06-14 16:41 | ER ---
Nurse's Notes [facility] Name: Mely Haq Age: 25 yrs Sex: Female : 2000 Arrival Date: 06/14/2025 Time: 15:40 Bed 10 Private MD: Diagnosis: Acute pharyngitis, unspecified Presentation: 06/14 15:57 Chief complaint: Patient states: sore throat started last night at 6pm. Coronavirus af3 screen: At this time, the client does not indicate any symptoms associated with coronavirus-19. Ebola Screen: No symptoms or risks identified at this time. 15:57 Method Of Arrival: Ambulatory af3 15:57 Initial Sepsis Screen: Does the patient meet any 2 criteria? No. Patient's initial af3 sepsis screen is negative. Does the patient have a suspected source of infection? No. Patient's initial sepsis screen is negative. Risk Assessment: Do you want to hurt yourself or someone else? Patient reports no desire to harm self or others. Onset of symptoms was June 13, 2025. 15:57 Acuity: PATY 4 af3 Triage Assessment: 16:01 General: Appears in no apparent distress. comfortable, well groomed, well developed, af3 Behavior is calm, cooperative, appropriate for age. Pain: Denies pain. Neuro: Level of Consciousness is awake, alert, obeys commands, Oriented to person, place, time, situation, Appropriate for age. Cardiovascular: Patient's skin is warm and dry. Respiratory: Airway is patent Respiratory effort is even, unlabored, Respiratory pattern is regular, symmetrical. Historical: - Allergies: 16:01 No Known Allergies; af3 - PMHx: 16:01 laryngitis; af3 - Immunization history:: Adult Immunizations unknown. - Infectious Disease History:: Denies. - Social history:: Smoking status: Patient denies any tobacco usage or history of. Patient uses alcohol, occasionally. Screenin:03 [facility] ED Fall Risk Assessment (Adult) History of falling in the last 3 months, af3 including since admission No falls in past 3 months (0 pts) Confusion or Disorientation No (0 pts) Intoxicated or Sedated No (0 pts) Impaired Gait No (0 pts) Mobility Assist Device Used No (0 pt) Altered Elimination No (0 pt) Score/Fall Risk Level 0 - 2 = Low Risk Oriented to surroundings, Maintained a safe environment, Educated pt \T\ family on fall prevention, incl call for assistance when getting out of bed. Abuse screen: Denies threats or abuse. Denies injuries from another. Nutritional screening: No deficits noted. Tuberculosis screening: No symptoms or risk factors identified. Assessment: 16:03 General: see triage assessment . af3 Vital Signs: 15:57 BP 134 / 95; Pulse 80; Resp 18; Temp 97.9; Pulse Ox 99% on R/A; Weight 59.87 kg; Height af3 5 ft. 3 in. ; 17:11 BP 133 / 99; Pulse 87; Resp 18; Pulse Ox 100% on R/A; af3 15:57 Body Mass Index 23.38 (59.87 kg, 160.02 cm) af3 ED Course: 15:42 Patient arrived in ED. mr 15:43 [facility]C [facility]. kb 15:43 Antoine Hamm DO is Attending Physician. kb 15:45 Ariella Durham, ISABELLE is Primary Nurse. af3 15:57 COVID-19 Ag + Flu A+B Ag Sent. af3 15:57 Group A Streptococcus Rapid Sent. af3 15:59 Triage completed. af3 16:01 Arm band placed on. af3 16:03 No provider procedures requiring assistance completed. af3 16:03 Patient has correct armband on for positive identification. Bed in low position. Call af3 light in reach. Provided Education on: call light use . Administered Medications: 17:09 Drug: GI Cocktail without - (Maalox PO 30 ml, Lidocaine Mucous Membrane 2 % 15 af3 ml) PO once Route: PO; 17:10 Follow up: Response: No adverse reaction; Medication administered at discharge. af3 Medication: 16:03 VIS not applicable for this client. af3 Outcome: 16:41 Discharge ordered by . kb 17:11 Discharged to home ambulatory, af3 17:11 Condition: stable 17:11 Discharge instructions given to patient, Instructed on discharge instructions, follow up and referral plans. Demonstrated understanding of instructions, follow-up care, 17:12 Patient left the ED. af3 Signatures: Kellee Kaiser FNP-C HEAD OF MARKETING-Eneida Ortiz, Reg Reg mr Ariella Durham, RN RN af3
[2025-06-14] MEDS ORDERED: MAGNES/ALUMIN/SIMET 30ML UCUP ONE (16:53)
[2025-06-14] MEDS ORDERED: LIDOCAINE VISCOUS 2% 10ML ORAL SOLN ONE (16:53)
[2025-06-14 17:25] VITALS: TEMP 97.9
[2025-06-14 17:27] VITALS: BP 133/99; O2SAT 100
== END 2025-06-14 17:12 | disposition home or self-care (01) ==
LOC: ER 15:40
DX: J02.9 Acute pharyngitis, unspecified (principal); Z11.52 Encounter for screening for COVID-19
CPT/HCPCS: 36415; 87070; 87428; 99283